=== PATIENT | male | born 1970 | race African-American/Black ===

== ENCOUNTER → 2017-03-03 | Outpatient (CLI) | payer BC ==
[~2017-03-03] MED LIST: AGM875 PO; PRED20TA PO
[2017-03-03 12:27] LABS: BASO % 0.3 %; BASO ABS # 0.02 K/uL (0-0.2); COMPLETE YES; EOS % 0.3 %; HEMATOCRIT 38.1 % (42-52); IG% 0.1 %; LYMPH % 27.5 %; LYMPH ABS # 1.93 K/uL (1.2-3.4); MEAN CELL VOLUME 76.7 fL (80-100); MEAN CORPUSCULAR HEMOGLOBIN 25.8 pg (25-34); MEAN CORPUSCULAR HGB CONC 33.6 g/dl (32-36); MEAN PLATELET VOLUME 10.6 fL (7.4-10.4); MONO % 7.6 %; NEUT % 64.2 %; PLATELET COUNT 264 K/uL (130-400); RED BLOOD COUNT 4.97 M/uL (4.7-6.1); WHITE BLOOD COUNT 7.01 K/uL (4.8-10.8)
[2017-03-03 12:32] LABS: URINE APPEARANCE TURBID (CLEAR); URINE BILIRUBIN NEG (NEG); URINE COLOR YELLOW; URINE EPITHELIAL CELL AUTO 0-5 /lpf (0-5); URINE NITRITE NEG (NEG); URINE SPECIFIC GRAVITY 1.012 (1.000-1.030); UROBILINOGEN NEG (NEG)
[2017-03-03 12:33] LABS: MANUAL MICROSCOPIC REQUIRED? NO; REVIEW REQ? NO
[2017-03-03 13:29] LABS: ALT/SGPT 23 U/L (12-78); AST/SGOT 15 U/L (15-37); BLOOD UREA NITROGEN 16 mg/dl (7-18); BUN/CREATININE RATIO 13.3 (10-20); CALCIUM 8.8 mg/dl (8.5-10.1); CARBON DIOXIDE 30 mmol/L (21-32); CHLORIDE 106 mmol/L (98-107); GLUCOSE 86 mg/dl (70-99); POTASSIUM 3.9 mmol/L (3.5-5.1); SODIUM 141 mmol/L (136-145)
[2017-03-03 13:34] LABS: ALB/GLOB RATIO 1.2 (0.9-2); ALKALINE PHOSPHATASE 55 U/L (45-117); CHOLESTEROL 163 mg/dl (0-200); CHOLESTEROL/HDL RATIO 2.5; FREE PSA 0.25 ng/ml; HDL CHOLESTEROL 66 mg/dl; LDL CHOLESTEROL CALCULATED 88 mg/dl; TRIGLYCERIDES 44 mg/dl (0-150); VERY LOW DENSITY LIPOPROT CALC 9 mg/dl
--- NOTE | 2017-03-09 09:10 | CODING QUERY MEDICAL NECESSITY ---
SUPPORTING DIAGNOSIS NEEDED Dr. Ty, A supporting diagnosis is required for the test/procedure performed on this patient in order for us to be reimbursed by the patient's insurance. Please provide a supporting diagnosis for the following test/procedure listed below next to the test name along with your signature. *If there is no additional diagnosis for this patient that would support the following test/procedure please document that below next to the test/procedure. Test(s)/Procedure(s) that require a supporting diagnosis: * [id number] PSA DIAGNOSIS: DATE OF SERVICE: 03/03/17 Provider Signature: Date: Thank you Michel Chaudhari [facility] Information Management Once completed, please kindly fax back to [phone] For questions please call [phone]
== END | disposition home or self-care (01) ==
LOC: C.LAB 11:02
PROVIDERS: ATTEND Family Medicine
DX: Z00.00 Encounter for general adult medical examination without abnormal findings (principal); Z80.42 Family history of malignant neoplasm of prostate

== ENCOUNTER 2017-07-14 07:53 | Emergency (ER) | payer BC ==
[~2017-07-14] VITALS: Ht 180.3 cm; Wt 83.0 kg
[~2017-07-14 07:53] MED LIST changes: -PRED20TA PO
[2017-07-14 07:56] VITALS: TEMP 36.7; Ht 180.3 cm; Wt 83.0 kg
[2017-07-14] MEDS ORDERED: IBUPROFEN 600 MG TAB PO STA (08:09)
[2017-07-14] MEDS ORDERED: ACETAMINOPHEN 500 MG TAB PO STA (08:09)
--- NOTE | 2017-07-14 08:15 | EMERGENCY ROOM VISIT NOTE ---
History First contact with patient: 08:01 Chief Complaint: BACK PAIN Stated Complaint: BACK PAIN History of Present Illness The patient is a 46 year old male who presents to the Emergency Room with complaints of low back pain. The patient states that he was playing flag football 2 days ago. He states when he was walking off the field he felt a sharp and grabbing pain in his back. The pain is primarily right-sided. It radiates into the right leg. The patient states he was unable to lift the right leg secondary to severe pain. He states he has intermittent numbness. He denies any saddle anesthesia or loss of bowel or bladder control. He denies any fever. He denied any specific injury or fall. He rates his discomfort a 10 /10. He did try ibuprofen on Thursday with no significant improvement. The patient also complains of pain in the right thumb and fifth finger which he has injured in the last several weeks playing sports. He denies any chest pain or trouble breathing. He denies any abdominal pain, nausea or vomiting. He denies any dysuric emergency, frequency or hematuria. Review of Systems A 10 system review of systems was completed with positives and pertinent negatives listed in the HPI. Past Medical/Surgical History Patient denies Social History Smoking Status: Never Smoker Marital Status: Housing Status: lives with family Current/Historical Medications Scheduled Prednisone (Prednisone), 0 PO DAILY Physical Exam Vital Signs Date Time Temp Pulse Resp B/P (MAP) Pulse Ox O2 Delivery O2 Flow Rate FiO2 07/14/17 10:36 55 16 134/97 99 07/14/17 09:58 65 16 122/84 98 Room Air 07/14/17 09:40 59 14 137/89 98 Room Air 07/14/17 08:58 51 16 136/96 98 Room Air 07/14/17 07:56 36.7 79 18 129/95 94 Room Air Physical Exam VITALS: Vitals are noted on the nurse's note and reviewed by myself. Vital signs stable. GENERAL: As is a 46-year-old male who appears to be uncomfortable and in pain, nondiaphoretic, well-developed well-nourished. SKIN: The skin was without rashes, erythema, edema, or bruising. There is no tenting of the skin. Capillary reflex less than 2 seconds. HEAD: Normocephalic atraumatic. EARS: The external ears are normal in appearance. EYES: Pupils equal round and reactive to light and accommodation. Conjunctivae without injection, sclerae without icterus. Extraocular movements intact. NOSE: Patent, turbinates without inflammation or discharge. MOUTH: Mucous membranes moist. Tonsils are not enlarged. Pharynx without erythema or exudate. Uvula midline. Airway patent. Tongue does not deviate. NECK: Supple without nuchal rigidity. No lymphadenopathy. No thyromegaly. Cervical spine is nontender. No JVD. HEART: Regular rate and rhythm without murmurs gallops or rubs. LUNGS: Clear to auscultation bilaterally without wheezes, rales or rhonchi. No retractions or accessory muscle use. ABDOMEN: Positive bowel sounds x 4. Soft, nontender, without masses or organomegaly. MUSCULOSKELETAL: No muscle atrophy, erythema, or edema noted. The patient cannot lift the right leg off the bed secondary to pain, positive straight leg raise. No tenderness to palpation to the lumbar spine or paraspinous muscles. NEURO: Patient was alert and oriented to person place and time. Normal sensation to light and sharp touch. Deep tendon reflexes 2+ throughout. No focal neurological deficits. Medical Decision & Procedures ER Provider Diagnostic Interpretation: [~ rep ct add3]] LUMBAR SPINE W/O CONTRAST HISTORY: Back pain. Neuropathy. low back pain, right leg pain and weakness TECHNIQUE: Multiplanar multisequence MRI of the lumbar spine was performed without the use of contrast. COMPARISON: None. FINDINGS: For the purpose of the report the L5-S1 disc space will be located on axial image 23 of 25. Signal characteristics the vertebral bodies are unremarkable. Intervertebral disc signal is unremarkable. There appears to be disc fragment posterior to the L4 vertebral body. Basal sagittal images is 9 x 5 mm. L1-L2: No significant central canal or neural foraminal narrowing. L2-L3: No significant central canal or neural foraminal narrowing. L3-L4: No significant central canal or neural foraminal narrowing. L4-L5: Slight right central bulging disc. Probable extruded disc fragment extending from the disc at L4-L5 and position posterior to the inferior endplate of L4. This is maximum process axial dimensions of 8 x 5 mm and creates focal impact upon the right anterior aspect of thecal sac and moderate narrowing of the right neuroforamina. L5-S1: No significant central canal or neural foraminal narrowing. IMPRESSION: 1. Right central bulging disc L4-L5 with extruded disc fragment extending posterior to the inferior endplate of L4. 2. Extruded disc fragment measures 9 x 5 x 8 mm and creates focal deformity of the right anterior aspect of the thecal sac and moderate compromise of the right neuroforamina. 3. Remainder the study is negative. R HAND MIN 3 VIEWS ROUTINE HISTORY: 46 years-old Male right thumb and fifth finger injury and pain acute right hand pain status post trauma. COMPARISON: None available. TECHNIQUE: 3 views of the right hand FINDINGS: Mild metacarpal and interphalangeal degenerative changes are noted. There is no acute fracture or dislocation. Mild soft tissue swelling of the first digit. No opaque foreign body. IMPRESSION: Mild soft tissue swelling of the first digit without acute bony abnormality. Medications Administered Medications (Trade) Dose Ordered Sig/Casey Route Start Time Stop Time Status Last Admin Dose Admin Ibuprofen (Motrin Tab) 600 mg NOW STAT PO 07/14/17 08:09 07/14/17 08:11 DC 07/14/17 08:15 600 MG Acetaminophen (Tylenol Tab) 1,000 mg NOW STAT PO 07/14/17 08:09 07/14/17 08:11 DC 07/14/17 08:15 1,000 MG Prednisone (PredniSONE TAB) 60 mg NOW STAT PO 07/14/17 09:53 07/14/17 09:54 DC 07/14/17 09:56 60 MG ED Course The patient was seen and examined. Previous visits were reviewed. The patient is afebrile. The patient presents with low back pain that radiates into the right leg. He did not have any neurologic deficit on exam or by history but the patient has significant discomfort, positive straight leg raise and has difficulty ambulating. Therefore, the patient underwent MRI of the lumbar spine. He does have herniated disc at L4-L5. He also complained of right thumb and fifth finger pain. An x-ray was obtained and there is no bony abnormality. The patient was offered but multiple times declined any narcotic pain medication. He was given 600 mg Motrin and 1 g oral Tylenol with mild improvement in his pain. He was given 60 mg oral prednisone. The patient declined any injections. I discussed the case with Dr. Sierra who recommends that the patient contact the office and they can see him this week. The patient was advised of this. He was given a prescription for prednisone. He should return to the ER if any worsening symptoms. The case was discussed with who agrees with the assessment and treatment plan Medical Decision DIFFERENTIAL DIAGNOSIS: Lumbar strain, degenerative disc disease, spondylolisthesis, herniated disc, spinal stenosis, osteoporosis, fracture, cauda equina syndrome, neoplasm, infection, inflammatory arthritis, among others. Medication Reconcilliation Current Medication List: was personally reviewed by me Blood Pressure Screening Patient's blood pressure: Elevated blood pressure Blood pressure disposition: Elevated BP felt to be situational Impression Primary Impression: Herniated lumbar intervertebral disc Departure Information Dispostion Home / Self-Care Condition GOOD Prescriptions Prednisone (Prednisone) 20 Mg Tab 0 PO DAILY, #18 TAB 3 DAILY FOR 3 DAYS, THEN 2 DAILY FOR 3 DAYS, THEN 1 DAILY FOR 3 DAYS. Prov: Veronica Armstrong PA-C 07/14/17 Referrals Magda Ty DO (PCP) Nick Sierra DO Patient Instructions ED Disk Intervertebral Herniated, [facility] Additional Instructions Tylenol according to package instructions for pain. Motrin 600 mg every 6-8 hours for pain. Take the prednisone as prescribed. The Motrin and prednisone can be irritating to the lining of the stomach. Consider taking Zantac or Pepcid with any stomach irritation. Contact Dr. Sierra's office today to schedule a follow-up appointment this week for further evaluation and management Return with any worsening symptoms, loss of bowel or bladder control, fevers, numbness in the groin
--- NOTE | 2017-07-14 08:43 | DIAGNOSTIC IMAGING REPORT ---
R HAND MIN 3 VIEWS ROUTINE HISTORY: 46 years-old Male right thumb and fifth finger injury and pain acute right hand pain status post trauma. COMPARISON: None available. TECHNIQUE: 3 views of the right hand FINDINGS: Mild metacarpal and interphalangeal degenerative changes are noted. There is no acute fracture or dislocation. Mild soft tissue swelling of the first digit. No opaque foreign body. IMPRESSION: Mild soft tissue swelling of the first digit without acute bony abnormality. The above report was generated using voice recognition software. It may contain grammatical, syntax or spelling errors. Electronically signed by: Chirag Araya M.D. 07/14/2017 8:41 AM Dictated Date/Time: 07/14/2017 8:39 AM
--- NOTE | 2017-07-14 09:36 | DIAGNOSTIC IMAGING REPORT ---
LUMBAR SPINE W/O CONTRAST HISTORY: Back pain. Neuropathy. low back pain, right leg pain and weakness TECHNIQUE: Multiplanar multisequence MRI of the lumbar spine was performed without the use of contrast. COMPARISON: None. FINDINGS: For the purpose of the report the L5-S1 disc space will be located on axial image 23 of 25. Signal characteristics the vertebral bodies are unremarkable. Intervertebral disc signal is unremarkable. There appears to be disc fragment posterior to the L4 vertebral body. Basal sagittal images is 9 x 5 mm. L1-L2: No significant central canal or neural foraminal narrowing. L2-L3: No significant central canal or neural foraminal narrowing. L3-L4: No significant central canal or neural foraminal narrowing. L4-L5: Slight right central bulging disc. Probable extruded disc fragment extending from the disc at L4-L5 and position posterior to the inferior endplate of L4. This is maximum process axial dimensions of 8 x 5 mm and creates focal impact upon the right anterior aspect of thecal sac and moderate narrowing of the right neuroforamina. L5-S1: No significant central canal or neural foraminal narrowing. IMPRESSION: 1. Right central bulging disc L4-L5 with extruded disc fragment extending posterior to the inferior endplate of L4. 2. Extruded disc fragment measures 9 x 5 x 8 mm and creates focal deformity of the right anterior aspect of the thecal sac and moderate compromise of the right neuroforamina. 3. Remainder the study is negative. The above report was generated using voice recognition software. It may contain grammatical, syntax or spelling errors. Electronically signed by: Filiberto Muñoz M.D. 07/14/2017 9:35 AM Dictated Date/Time: 07/14/2017 9:32 AM
[2017-07-14] MEDS ORDERED: PRED20TA PO (10:30)
[2017-07-14 10:36] VITALS: BP 134/97; PULSE 55; O2SAT 99
== END 2017-07-14 10:37 | disposition home or self-care (01) ==
LOC: C.EDB 07:55 → C.EDA 10:37
DX: M51.26 Other intervertebral disc displacement, lumbar region (principal); M79.644 Pain in right finger(s)